=== PATIENT | female | born 1980 | race Two or more races ===

== ENCOUNTER 2019-02-12 12:00 | Emergency (ER) | payer MEDICAID ==
[~2019-02-12] VITALS: Ht 165.1 cm; Wt 55.3 kg
[2019-02-12 12:28] VITALS: BP 121/79
[2019-02-12] MEDS ORDERED: ACETAMINOPHEN ES 500 MG TABLET ONE (12:40)
[2019-02-12] MEDS ORDERED: ONDANSETRON 4 MG TAB.RAPDIS ONE (12:40)
[2019-02-12] MEDS ORDERED: ONDANSETRON 4 MG TAB.RAPDIS SL ONE (13:00)
[2019-02-12] MEDS ORDERED: ACETAMINOPHEN ES 500 MG TABLET PO ONE (13:00)
== END 2019-02-12 12:46 | disposition home or self-care (01) ==
LOC: ER 12:00
DX: S09.8XXA Other specified injuries of head, initial encounter (principal); W22.8XXA Striking against or struck by other objects, initial encounter; Y93.89 Activity, other specified; Y92.89 Other specified places as the place of occurrence of the external cause; Y99.8 Other external cause status
CPT/HCPCS: 99283; Q0162